=== PATIENT | male | born 2000 | race Caucasian/White ===

== ENCOUNTER 2023-05-17 09:06 | Outpatient (CLI) | payer BC, SELFPAY ==
[2023-05-17 13:09] LABS: Basophils Percent Auto 0.4 % (0.2-1.2); Eosinophils Absolute Auto 0.2 K/mm3 (0-0.3); Eosinophils Percent Auto 1.5 % (0-4.4); Hematocrit 51.3 % (42.0-52.0); Hemoglobin 17.1 g/dL (14.0-18.0); Immature Granulocyte Absolute 0.03 K/mm3 (0.00-0.031); Immature Granulocyte Percent A 0.3 % (0-0.5); Lymphocytes Absolute Auto 2.69 K/mm3 (0.9-3.2); Lymphocytes Percent Auto 24.1 % (18.3-44.2); Mean Corpuscular HGB Conc 33.3 g/dl (32-36); Mean Corpuscular Hemoglobin 29.9 pg (26-34); Mean Corpuscular Volume 89.7 fl (80-100); Mean Platelet Volume 12.2 fl (7.4-10.4); Monocytes Absolute Auto 0.8 K/mm3 (0.1-0.6); Monocytes Percent Auto 6.9 % (2.6-8.5); Neutrophils Absolute Auto 7.5 K/mm3 (1.3-6.7); Neutrophils Percent Auto 66.8 % (45.5-73.1); Platelet Count Result 297 k/mm3 (150-375); Red Blood Count 5.72 M/mm3 (4.6-6.20); Red Cell Distribution Width 12.7 % (11.5-14.5); White Blood Count 11.2 K/mm3 (4.5-10.0)
[2023-05-17 14:18] LABS: Creatinine Urine 134.9 mg/dL
[2023-05-17 14:19] LABS: Alanine Aminotransferase 124 U/L (6-50); Albumin Level 5.1 g/dL (3.5-5.1); Alkaline Phosphatase 116 U/L (38-126); Anion Gap 14 mmol/L (4-12); Aspartate Amino Transferase 91 U/L (17-59); Bilirubin,Total 0.7 mg/dL (0.2-1.3); Blood Urea Nitrogen 11 mg/dL (9-20); Calcium 10.2 mg/dL (8.4-10.2); Carbon Dioxide 23 mmol/L (22-30); Chloride 102 mmol/L (98-107); Cholesterol 158 mg/dL (0-200); Estimated Glomerular Filt Rate > 60; Glucose 255 mg/dL (65-110); HDL Direct 42 mg/dL; Potassium 3.7 mmol/L (3.4-5.0); Sodium 139 mmol/L (137-145); Triglycerides 88 mg/dL (<150)
[2023-05-17 14:30] LABS: LDL Cholesterol Direct 103 mg/dL
[2023-05-17 14:50] LABS: MALB Creatinine Ratio 310.3 mg/g (0-30); Microalbumin Urine Random 418.6 mg/L (0-16.7)
[2023-05-17 19:41] LABS: Hemoglobin A1C 9.5 % (<5.7)
[2023-05-20 06:23] LABS: Thyroid Peroxidase Antibodies <1 IU/mL (<9)
[2023-05-20 06:58] LABS: C-Peptide 3.36 ng/mL (0.80-3.85); Insulin Level Total 24.7 uIU/mL (<=18.4)
[2023-05-21 14:16] LABS: Glutamic acid decarboxylase AA <5 IU/mL (<5)
[2023-05-21 22:02] LABS: Apolipoprotein B 79 mg/dL (<90)
== END 2023-05-17 09:07 | disposition home or self-care (01) ==
LOC: ANHGOSHLAB 09:08
PROVIDERS: PCP Clinical Nurse Specialist; Visit Provider Clinical Nurse Specialist
DX: R73.9 Hyperglycemia, unspecified (principal); Z13.228 Encounter for screening for other metabolic disorders; Z13.220 Encounter for screening for lipoid disorders
CPT/HCPCS: 36415; 80053; 80061; 82043; 82172; 83036; 83525; 84443; 84681; 85025; 86337; 86341; 86376

== ENCOUNTER 2023-08-29 08:07 | Outpatient (CLI) | payer BC, SELFPAY ==
[2023-08-29 13:30] LABS: Bilirubin,Total 0.5 mg/dL (0.2-1.3); Carbon Dioxide 27 mmol/L (22-30); Estimated Glomerular Filt Rate > 60
[2023-08-29 13:36] LABS: Alanine Aminotransferase 142 U/L (6-50); Alkaline Phosphatase 99 U/L (38-126); Anion Gap 13 mmol/L (4-12); Aspartate Amino Transferase 117 U/L (17-59); Blood Urea Nitrogen 8 mg/dL (9-20); Calcium 9.3 mg/dL (8.4-10.2); Chloride 100 mmol/L (98-107); Glucose 172 mg/dL (65-110); Potassium 3.8 mmol/L (3.4-5.0); Sodium 140 mmol/L (137-145)
[2023-08-29 13:47] LABS: Creatinine Urine 59.5 mg/dL
[2023-08-29 13:49] LABS: MALB Creatinine Ratio 88.9 mg/g (0-30); Microalbumin Urine Random 52.9 mg/L (0-16.7)
[2023-08-29 14:01] LABS: Hemoglobin A1C 7.9 % (<5.7)
== END 2023-08-29 08:08 | disposition home or self-care (01) ==
LOC: ANHGOSHLAB 08:08
PROVIDERS: PCP Clinical Nurse Specialist; Visit Provider Clinical Nurse Specialist
DX: E11.9 Type 2 diabetes mellitus without complications (principal)
CPT/HCPCS: 36415; 80053; 82043; 83036

== ENCOUNTER 2024-08-11 08:10 | Outpatient (CLI) | payer OTHER, SELFPAY ==
[2024-08-11 12:29] LABS: Iron 109 ug/dL (49-181)
[2024-08-11 12:46] LABS: Percent Iron Saturation 27 % (20-50)
[2024-08-11 13:23] LABS: HIV 1/2 Ab P24 Ag Result Negative (Negative)
[2024-08-11 13:38] LABS: Hepatitis B Surface Antigen Negative (Negative)
[2024-08-11 13:56] LABS: Hepatitis C Virus Antibody Negative (Negative)
[2024-08-14 15:08] LABS: Immunoglobulin A 429 mg/dL (47-310); TTG IGA AB <1.0 U/mL
== END 2024-08-11 08:11 | disposition home or self-care (01) ==
LOC: ANHGOSHLAB 08:11
PROVIDERS: PCP Clinical Nurse Specialist; Visit Provider Nurse Practitioner
DX: R74.01 Elevation of levels of liver transaminase levels (principal)
CPT/HCPCS: 36415; 82784; 83540; 83550; 84443; 86703; 86803; 87340; G0432

== ENCOUNTER 2024-08-14 09:32 | Outpatient (CLI) | payer OTHER, SELFPAY ==
--- NOTE | ~2024-08-14 | US_ITS ---
US abdomen limited INDICATION: Elevated liver enzymes PROCEDURE: Realtime right upper abdominal ultrasound. COMPARISON: No prior studies for comparison. FINDINGS: The pancreas is normal without focal mass or pancreatic ductal dilation. Liver echotexture is diffusely increased, consistent with fatty infiltration. There is normal directional flow in the portal vein. The gallbladder is normal without stones, gallbladder wall thickening or pericholecystic fluid. Comm on bile duct measures 4 mm. No sonographic Goldman's sign. IMPRESSION: 1: Fatty infiltration of the liver. Reviewed, dictated and finalized at location A.
== END 2024-08-14 09:33 | disposition home or self-care (01) ==
LOC: GOSHIMG 09:33
PROVIDERS: PCP Nurse Practitioner; Visit Provider Nurse Practitioner
DX: R74.01 Elevation of levels of liver transaminase levels (principal); K76.0 Fatty (change of) liver, not elsewhere classified
CPT/HCPCS: 76705